=== PATIENT | male | born 1995 | race Caucasian/White ===

== ENCOUNTER 2017-02-13 02:13 | Emergency (ER) | payer SELFPAY ==
[~2017-02-13] VITALS: Ht 175.3 cm; Wt 80.0 kg
[2017-02-13 02:22] VITALS: TEMP 36.6; Ht 175.3 cm; Wt 80.0 kg
--- NOTE | 2017-02-13 02:37 | EMERGENCY ROOM VISIT NOTE ---
History Report prepared by Shantanu: Jenna Spangler Under the Supervision of: Dr. Tomer Meneses M.D. First contact with patient: 02:18 Chief Complaint: ALCOHOL OVERDOSE Stated Complaint: ALCOHOL OVERDOSE History of Present Illness The patient is a 21 year old male who presents to the Emergency Room with complaints of an episode of alcohol overdose occurring tonight. Per EMS, they were driving back to the station when they noticed the patient asleep partially in the road. The patient states that he remembers falling, but doesn't know where. The patient notes he has been drinking tonight. He denies any pain. The patient notes he got a severe sunburn 2 days ago. Source of History: patient, EMS History Limited By: intoxication Onset: tonight Position: other (global) Quality: other (global) Timing: other (episode) Note: The patient denies any pain. Review of Systems See HPI for pertinent positives & negatives. A total of 10 systems reviewed and were otherwise negative. Past Medical & Surgical Medical Problems: (1) No Known Active Medical Problems Family History Patient reports no known family medical history. Social History Alcohol Use: other Marital Status: single Housing Status: lives with roommate Occupation Status: [employer] student Current/Historical Medications No Active Prescriptions or Reported Meds Allergies Coded Allergies: No Known Allergies (Unverified , 02/13/17) Physical Exam Vital Signs Date Time Temp Pulse Resp B/P (MAP) Pulse Ox O2 Delivery O2 Flow Rate FiO2 02/13/17 05:00 99 Nasal Cannula 2.0 02/13/17 04:59 99 Nasal Cannula 2.0 02/13/17 04:58 97 17 83 Room Air 02/13/17 04:49 113/57 02/13/17 04:48 85 91 02/13/17 04:38 83 18 96 02/13/17 04:30 81/65 02/13/17 04:28 99 21 94 02/13/17 04:18 90 21 95 02/13/17 04:15 115/66 02/13/17 04:08 90 17 86 02/13/17 04:03 80 13 92 02/13/17 03:48 81 13 91 02/13/17 03:33 110 24 97 02/13/17 03:18 107 14 96 02/13/17 03:03 110 18 97 02/13/17 02:58 109 16 96 02/13/17 02:47 125 02/13/17 02:43 115 15 95 02/13/17 02:28 118 18 94 02/13/17 02:22 36.6 128 20 137/80 95 Room Air 02/13/17 02:18 137/80 Physical Exam GENERAL: Patient is moderately intoxicated. Smells of alcohol. Well appearing and in no acute distress. HEAD: No evidence of Trauma. AT/NC EYES: Injected conjunctiva with dilated pupils that are reactive. Normal EOM. Pupils equal/reactive. ENT: Mucous membranes moist, no nasal congestion, . NECK: No step-offs, no adenopathy, no meningismus, trachea is midline. LUNGS: No dyspnea. Clear to auscultation and equal bilaterally. No wheeze, no rhonchi. HEART: Regular rate and rhythm. No murmurs, rubs, gallops appreciated. ABDOMEN: Soft, nontender, bowel sounds positive, no masses appreciated, no peritonitis. BACK: No midline tenderness, no CVA tenderness EXTREMITIES: Normal motion all extremities, no cyanosis, no edema. NEUROLOGIC: Intoxicated. Moderately slurred speech. Alert, oriented. No acute motor or sensory deficits, no focal weakness, cranial nerves grossly intact. SKIN: No rash, no jaundice, no diaphoresis. Healing moderate to severe sunburn on his chest, bilateral shoulder,s tip of nose, and ears. Medical Decision & Procedures Laboratory Results 02/13/17 02:31 Test 02/13/17 02:31 Anion Gap 4.0 mmol/L (3-11) Est Creatinine Clear Calc Drug Dose 130.6 ml/min Estimated GFR () 141.1 Estimated GFR (Non- 121.7 BUN/Creatinine Ratio 13.6 (10-20) Calcium Level 8.9 mg/dl (8.5-10.1) Ethyl Alcohol mg/dL 248.0 mg/dl (0-3) Laboratory results as reviewed by me. ED Course 0219: The patient was evaluated in room B4A. A complete history and physical exam was performed. 0524: The patient will be discharged when sober in the morning. Medical Decision Differential: Alcohol Intoxication, Drug Intoxication, Electrolyte Abnormality, Trauma, Intracranial Event, Toxicological, Excited Delirium, Serotonin Syndrome , amongst other pathologies entertained. 21 yr old moderately intoxicated male arrives via EMS after daniel apparently found sleeping by the road. No trauma appreciated and he denies pain/trauma. Exam with sunburn afew days old as well. Patient with no evidence nor history for trauma. Protecting airway and breathing comfortably throughout ED stay. EtOH positive. Monitored and discharged when awake, alert, oriented and denies any complaints. Head Trauma GCS Score: 15 Medication Reconcilliation Current Medication List: was personally reviewed by me Blood Pressure Screening Patient's blood pressure: Normal blood pressure Impression Primary Impression: Alcohol abuse Additional Impressions: Alcohol intoxication Sunburn Scribe Attestation The scribe's documentation has been prepared under my direction and personally reviewed by me in its entirety. I confirm that the note above accurately reflects all work, treatment, procedures, and medical decision making performed by me. Departure Information Dispostion Home / Self-Care Prescriptions No Active Prescriptions or Reported Meds Patient Instructions My [facility] Additional Instructions You were evaluated in emergency department for intoxication. This is a sign of Alcohol Abuse and should not be taken lightly. You had a blood alcohol level that was significantly elevated. Over the next 24 hours keep well hydrated and eat light meals. Don't drink any more alcohol. This is important. Please discuss this visit with your Primary Care Provider, [facility] and/or your loved ones. Unless an exceptional circumstance, the Hospital DOES NOT contact anyone DURING your visit, nor is your Protected Medical Information released to anyone without your approval/request. This means we do not contact your Parents, the Police, etc. However, you will likely receive a bill from the Hospital and/or your Insurance company, which will usually be sent to the Primary Policy [place] (often one's Parents). Furthermore, as a student, your visit report will likely be sent to [facility] as your primary care provider, unless other Provider listed. If your incident was on campus, or if the Police were involved, they will often contact the University to make them aware of what happened. Often this will result in you being required to take Alcohol Education classes (ie BASICS class) . Please see information given to you at discharge regarding contact for this. If the Police were involved you will likely be cited for public intoxication. Please contact either [facility] or the [place] Police for further information. Call 911 or return to Emergency Department if you develop: Passing out, difficulty breathing, many episodes of vomiting, blood in vomit or stool, abdominal pain, fevers, or other severe symptoms. We are always here to help if you feel you need further evaluation or treatment. Problem Qualifiers
[2017-02-13 03:01] LABS: BUN/CREATININE RATIO 13.6 (10-20); CALCIUM 8.9 mg/dl (8.5-10.1); CREATININE 0.91 mg/dl (0.60-1.40); POTASSIUM 4.3 mmol/L (3.5-5.1)
[2017-02-13 04:59] VITALS: O2SAT 99
[2017-02-13 09:04] VITALS: BP 100/65; PULSE 94; O2SAT 97
== END 2017-02-13 09:05 | disposition home or self-care (01) ==
LOC: C.EDB 02:14
DX: F10.120 Alcohol abuse with intoxication, uncomplicated (principal); L55.9 Sunburn, unspecified

== ENCOUNTER 2017-04-15 21:22 | Emergency (ER) | payer SELFPAY ==
[2017-04-15 21:30] VITALS: TEMP 37.3; O2SAT 94
[2017-04-15 22:42] LABS: BLOOD UREA NITROGEN 12 mg/dl (7-18); BUN/CREATININE RATIO 13.3 (10-20); CALCIUM 9.6 mg/dl (8.5-10.1); CARBON DIOXIDE 23 mmol/L (21-32); CHLORIDE 108 mmol/L (98-107); GLUCOSE 105 mg/dl (70-99); POTASSIUM 3.3 mmol/L (3.5-5.1); SODIUM 141 mmol/L (136-145)
--- NOTE | 2017-04-16 00:51 | EMERGENCY ROOM VISIT NOTE ---
History Report prepared by Shantanu: Gloria Naranjo Under the Supervision of: Dr. Gino Aguilera D.O. First contact with patient: 21:55 Chief Complaint: ALCOHOL OVERDOSE Stated Complaint: ALCOHOL OVERDOSE Nursing Triage Summary: [place] for ETOH overdose. pt was uncooperative with PD, uncooperative with EMS. remains uncooperative for ED staff. pt not obeying commands, states "fuck you". Unable to obtain BP, pt moving arm. Security is in room History of Present Illness The patient is a 21 year old male who presents to the Emergency Room with complaints of constant alcohol intoxication beginning [place]. Per nursing staff, the patient was drinking today and was uncooperative with the police and EMS. HPI limited secondary to intoxication. Source of History: nursing staff History Limited By: intoxication Onset: [place]ER Position: other (global) Quality: other (intoxication) Timing: constant Review of Systems See HPI for pertinent positives & negatives. ROS limited secondary to intoxication. Past Medical & Surgical Medical Problems: (1) No Known Active Medical Problems Family History Patient reports no known family medical history. Social History Smoking Status: Never Smoker Alcohol Use: other Marital Status: single Housing Status: lives with roommate Occupation Status: [employer] student Current/Historical Medications Unable to Obtain Active Prescriptions or Reported Meds Allergies Coded Allergies: No Known Allergies (Unverified , 02/13/17) Physical Exam Vital Signs Date Time Temp Pulse Resp B/P (MAP) Pulse Ox O2 Delivery O2 Flow Rate FiO2 04/16/17 00:09 73 18 122/57 95 Nasal Cannula 2.0 04/15/17 21:38 117 04/15/17 21:30 37.3 127 20 94 Room Air 04/15/17 21:30 94 Room Air Physical Exam CONSTITUTIONAL/VITAL SIGNS: Reviewed / noted above. GENERAL: Non-toxic in appearance. Smell of alcohol on his breath. INTEGUMENTARY: Warm, dry, and [place]. HEAD: Normocephalic. EYES: without scleral icterus or trauma. ENT/OROPHARYNX: clear and moist. LYMPHADENOPATHY/NECK: Is supple without lymphadenopathy or meningismus. RESPIRATORY: Lungs clear and equal. CARDIOVASCULAR: Regular rate and rhythm. GI/ABDOMEN: Soft and nontender. No organomegaly or pulsatile mass. No rebound or guarding. Normal bowel sounds. EXTREMITIES: Warm and well perfused. BACK: No CVA tenderness. NEUROLOGICAL: Unresponsive to verbal stimuli. Smell of alcohol on his breath. PSYCHIATRIC: normal affect. MUSCULOSKELETAL: Normally developed with good muscle tone. Medical Decision & Procedures Laboratory Results 04/15/17 22:03 Test 04/15/17 22:03 Anion Gap 10.0 mmol/L (3-11) Estimated GFR () 143.0 Estimated GFR (Non- 123.4 BUN/Creatinine Ratio 13.3 (10-20) Calcium Level 9.6 mg/dl (8.5-10.1) Ethyl Alcohol mg/dL 338.0 mg/dl (0-3) Laboratory results as stated above per my review. ED Course 2154: Previous medical records were reviewed. The patient was evaluated in room C2A. A complete history and physical examination was performed. 2342: I reevaluated the patient. 0033: I reevaluated the patient. He will be going home at 0700. Medical Decision There is no evidence of other toxic ingestions, trauma, anemia, hypoglycemia, head injury or intracranial pathology, meningitis, encephalitis, acute intrathoracic or abdominal pathology or other metabolic condition. This is a 21-year-old male who presents to the ED with a chief complaint of alcohol intoxication. The patient was brought in by EMS for evaluation. The events surrounding this transportation is unclear. Details listed above. The patient remained in an aspiration precaution position during his ED stay. The patient remained on the monitor without ectopy. Pulse ox was never shown any evidence of hypoxia. Blood pressure never showed significant hypotension. The patient was observed during the entire night and awoke in the morning. The mental status improved and the patient was awake alert and oriented and was felt stable for discharge. Patient was discharged home. Medication Reconcilliation Current Medication List: was personally reviewed by me Blood Pressure Screening Patient's blood pressure: Normal blood pressure Blood pressure disposition: Did not require urgent referral Impression Primary Impression: Alcohol use with intoxication Scribe Attestation The scribe's documentation has been prepared under my direction and personally reviewed by me in its entirety. I confirm that the note above accurately reflects all work, treatment, procedures, and medical decision making performed by me. Departure Information Dispostion Home / Self-Care Prescriptions Unable to Obtain Active Prescriptions or Reported Meds Referrals No Doctor, Assigned (PCP) Patient Instructions [facility]: [employer] Students and Alcohol Related Visits, My [facility] Additional Instructions Do not drink alcohol.
[2017-04-16 04:18] VITALS: BP 133/90; PULSE 101; O2SAT 96
== END 2017-04-16 04:19 | disposition home or self-care (01) ==
LOC: EDBD 21:22 → C.EDC 21:25
DX: F10.129 Alcohol abuse with intoxication, unspecified (principal); Y90.8 Blood alcohol level of 240 mg/100 ml or more